=== PATIENT | female | born 1995 | race Caucasian/White ===

== ENCOUNTER 2021-08-21 20:01 | Emergency (ER) | payer MEDICAID ==
[2021-08-21 22:00] LABS: ANION GAP 14.7 mEq/L (7-13); CHLORIDE,CL 99 mmol/L (98-107); SODIUM,NA 136 mmol/L (136-145)
[2021-08-21 22:43] LABS: AMPHETAMINES,URINE NEGATIVE (NEGATIVE); BARBITURATES,URINE NEGATIVE (NEGATIVE); BENZODIAZEPINE,URINE NEGATIVE (NEGATIVE); MDMA (ECSTASY), URINE NEGATIVE (NEGATIVE); METHADONE,URINE NEGATIVE (NEGATIVE); METHAMPHETAMINES,URINE >=1.030 (NEGATIVE); OPIATES,URINE NEGATIVE (NEGATIVE); OXYCODONE,URINE NEGATIVE (NEGATIVE); PHENCYCLIDINE,URINE NEGATIVE (NEGATIVE); TCA,URINE NEGATIVE (NEGATIVE)
== END 2021-08-22 00:54 | disposition home or self-care (01) ==
LOC: DL.ED 20:01
DX: O20.9 Hemorrhage in early pregnancy, unspecified (principal); Z3A.09 9 weeks gestation of pregnancy
CPT/HCPCS: 36415; 76801; 80053; 80305-QW; 80307; 81001; 81025; 84702; 85025; 99283; 99284-25

== ENCOUNTER 2022-03-03 12:23 | Inpatient (IN) | payer MEDICAID ==
[2022-03-03] MEDS ORDERED: SODIUM CHLORIDE 0.9% IV STA (13:19)
[2022-03-03] MEDS ORDERED: GENTAMICIN IV STA (13:19)
[2022-03-03] MEDS ORDERED: Sodium Chloride 0.9% 10 ML Syringe FLUSH PRN (13:21)
[2022-03-03] MEDS ORDERED: Methylergonovine 0.2 MG Tab PO PRN (13:21)
[2022-03-03] MEDS ORDERED: Tranexamic Acid 1,000 MG in Sodium Chloride 0.9% 100 ML IV PRN ×2 (13:21→18:50)
[2022-03-03] MEDS ORDERED: Carboprost Tromethamine 250 MCG/1 ML Amp IM PRN ×2 (13:21→18:50)
[2022-03-03] MEDS ORDERED: Oxytocin 10 Units/1 ML SDV IM PRN (13:21)
[2022-03-03] MEDS ORDERED: Citric Acid/Sodium Citrate Solution 30 ML Cup PO ONE (13:21)
[2022-03-03] MEDS ORDERED: Lactated Ringers 1,000 ML IV SCH ×3 (13:30→19:00)
[2022-03-03] MEDS ORDERED: Oxytocin/Normal Saline 30 UNIT/500 ML BAG IV SCH (13:30)
[2022-03-03 14:18] LABS: ESTIMATED GFR 131 mL/min (>=60)
[2022-03-03] MEDS ORDERED: diphenhydrAMINE 50 MG/ML SDV ONE (14:24)
[2022-03-03] MEDS: Lactated Ringers 1,000 ML IV SCH ×2 (16:17→18:44)
[2022-03-03] MEDS ORDERED: ePHEDrine 50 MG/ML SDV IVPUSH PRN ×2 (16:46→18:50)
[2022-03-03] MEDS ORDERED: Promethazine 25 MG/ML SDV IM PRN (16:46)
[2022-03-03] MEDS ORDERED: Ondansetron 4 MG/2 ML SDV IVPUSH PRN ×2 (16:46→18:50)
[2022-03-03] MEDS ORDERED: Naloxone 2 MG/2 ML Syringe IVPUSH PRN ×2 (16:46→18:50)
[2022-03-03] MEDS ORDERED: Lactated Ringers 500 ML IV SCH ×2 (17:00)
[2022-03-03] MEDS: diphenhydrAMINE 50 MG/ML SDV IV PRN (17:53)
[2022-03-03] MEDS ORDERED: Misoprostol 400 MCG (4 X 100 MCG TAB) RECTAL PRN (18:50)
[2022-03-03] MEDS ORDERED: Acetaminophen/oxyCODONE 325-5 MG Tab PO PRN (18:50)
[2022-03-03] MEDS ORDERED: Methylergonovine 0.2 MG/1 ML Amp IM PRN (18:50)
[2022-03-03] MEDS ORDERED: Acetaminophen 325 MG Tab PO PRN (18:50)
[2022-03-03] MEDS ORDERED: Ketorolac 30 MG/ML SDV IVPUSH SCH (19:00)
[2022-03-03] MEDS ORDERED: Sodium Chloride 0.9% 10 ML Syringe FLUSH SCH (21:00)
[2022-03-03] MEDS: Ketorolac 30 MG/ML SDV IVPUSH SCH (22:32)
[2022-03-03] MEDS: Simethicone 80 MG Tab.Chew PO SCH (22:33)
[2022-03-03] MEDS: diphenhydrAMINE 50 MG/ML SDV IVPUSH PRN (22:53)
[2022-03-04] MEDS: diphenhydrAMINE 50 MG/ML SDV IVPUSH PRN (04:35)
[2022-03-04] MEDS: Ketorolac 30 MG/ML SDV IVPUSH SCH ×2 (04:38→09:37)
[2022-03-04] MEDS: Simethicone 80 MG Tab.Chew PO SCH ×4 (08:49→21:17)
[2022-03-04] MEDS: Prenatal Multivitamin with Calcium/Folic Acid/Iron Tab PO SCH (08:50)
[2022-03-04] MEDS: Ferrous Sulfate 325 MG Tab PO SCH (08:50)
[2022-03-04] MEDS: Docusate Sodium 100 MG Cap PO PRN (08:52)
[2022-03-04] MEDS: diphenhydrAMINE 50 MG/ML SDV IV PRN (09:38)
[2022-03-04] MEDS: Acetaminophen/oxyCODONE 325-5 MG Tab PO PRN ×2 (15:15→21:17)
[2022-03-04] MEDS: Ibuprofen 800 MG Tab PO PRN (21:19)
[2022-03-05] MEDS: Acetaminophen/oxyCODONE 325-5 MG Tab PO PRN ×2 (02:16→07:43)
[2022-03-05] MEDS: Prenatal Multivitamin with Calcium/Folic Acid/Iron Tab PO SCH ×2 (07:42→08:02)
[2022-03-05] MEDS: Ferrous Sulfate 325 MG Tab PO SCH (07:42)
[2022-03-05] MEDS: Simethicone 80 MG Tab.Chew PO SCH ×2 (07:43→08:02)
[2022-03-05] MEDS: Ibuprofen 800 MG Tab PO PRN (07:43)
[2022-03-05] MEDS: Docusate Sodium 100 MG Cap PO PRN (07:43)
[2022-03-05] MEDS ORDERED: Phenylephrine 1% 10 MG/ML SDV IV ONE (11:44)
[2022-03-05] MEDS ORDERED: Ondansetron 4 MG/2 ML SDV IV ONE (11:44)
[2022-03-05] MEDS ORDERED: Ketorolac 30 MG/ML SDV IVPUSH ONE (11:44)
[2022-03-05] MEDS ORDERED: diphenhydrAMINE 50 MG/ML SDV IV ONE (11:44)
[2022-03-05] MEDS ORDERED: Lactated Ringers 1,000 ML IV ONE (11:44)
[2022-03-05] MEDS ORDERED: EPINEPHrine 1 MG/ML SDV ONE (11:44)
[2022-03-05] MEDS ORDERED: Tranexamic Acid 1,000 MG in Sodium Chloride 0.9% 100 ML IV ONE (11:44)
[2022-03-05] MEDS ORDERED: fentaNYL 100 MCG/2 ML SDV ONE (11:44)
[2022-03-05] MEDS ORDERED: ePHEDrine 50 MG/ML SDV IV ONE (11:44)
[2022-03-05] MEDS ORDERED: Dexmedetomidine 200 MCG/2 ML SDV ONE (11:44)
[2022-03-05] MEDS ORDERED: Dexamethasone 4 MG/ML SDV IV ONE (11:44)
[2022-03-05] MEDS ORDERED: Morphine PF 10 MG/10 ML SDV ONE (11:44)
[2022-03-05] MEDS ORDERED: Oxytocin/Normal Saline 30 UNIT/500 ML BAG IV ONE (11:44)
[2022-03-05] MEDS ORDERED: Sodium Chloride 0.9% 10 ML Syringe IV ONE (11:44)
== END 2022-03-05 11:45 | disposition home or self-care (01) | DRG 787 ==
LOC: EDSTATUS 13:41 → DL.OB 13:51
PROVIDERS: ADMIT Family Medicine; ATTEND Family Medicine
PROC: 10D00Z1 Extraction of Products of Conception, Low, Open Approach (ICD-10-PCS; principal; 2022-03-03)
DX: O34.211 Maternal care for low transverse scar from previous cesarean delivery (principal); O98.32 Other infections with a predominantly sexual mode of transmission complicating childbirth; O99.214 Obesity complicating childbirth; A60.09 Herpesviral infection of other urogenital tract; O13.4 Gestational [pregnancy-induced] hypertension without significant proteinuria, complicating childbirth; O99.344 Other mental disorders complicating childbirth; F41.1 Generalized anxiety disorder; Z20.822 Contact with and (suspected) exposure to COVID-19; Z28.82 Immunization not carried out because of caregiver refusal; Z3A.38 38 weeks gestation of pregnancy; Z37.0 Single live birth
CPT/HCPCS: 01961; 36415; 59025; 81003; 82565; 82570; 83615; 84156; 84450; 84460; 84520; 84550; 85027; 86850; 86900; 86901; A9270-GY; J0171; J1100; J1200; J1580; J1885; J2270; J2370; J2405; J2590; J3010; J3490; J7120; U0002

== ENCOUNTER 2022-10-21 09:54 | Emergency (ER) | payer SELFPAY | END 2022-10-21 10:20 | disposition home or self-care (01) | LOC: DL.ED 09:54 | DX: N61.0 Mastitis without abscess (principal); E66.9 Obesity, unspecified; Z88.1 Allergy status to other antibiotic agents; Z68.42 Body mass index [BMI] 45.0-49.9, adult | CPT/HCPCS: 99282; 99283 ==

== ENCOUNTER 2023-01-06 15:59 | Emergency (ER) | payer BC ==
[2023-01-06 16:30] LABS: BASOPHILS PERCENT AUTO 0.3 % (0.0-1.0); EOSINOPHILS PERCENT AUTO 1.7 % (1.0-3.0); HEMATOCRIT 40.5 % (37.0-47.0); HEMOGLOBIN 14.1 g/dL (12.0-16.0); LYMPHOCYTES PERCENT AUTO 35.2 % (20.5-50.1); MEAN CORPUSCULAR HEMOGLOBIN 30.1 pg (27.0-34.0); MEAN CORPUSCULAR HGB CONC 34.8 g/dL (33.0-35.0); MEAN CORPUSCULAR VOLUME 86.4 fL (80-100); MONOCYTES PERCENT AUTO 3.2 % (2-8); NEUTROPHILS PERCENT AUTO 59.6 % (42.2-75.2); PLATELET COUNT,PLT 319 10^3/uL (150-450); RED BLOOD CELL COUNT 4.69 10^6/uL (4.2-5.4); WHITE BLOOD CELL COUNT,WBC 9.3 10^3/uL (5.0-10.0)
[2023-01-06] MEDS ORDERED: Ketorolac 30 MG/ML SDV IM ONE (17:28)
[2023-01-06 17:34] LABS: INR 0.9 (0.9-1.2); PROTHROMBIN TIME 9.4 SEC (9.0-12.0); PTT,PARTIAL THROMBOPLSTIN TIME 26.5 SEC (22.0-34.0)
== END 2023-01-06 17:34 | disposition home or self-care (01) ==
LOC: DL.ED 15:59
DX: N94.6 Dysmenorrhea, unspecified (principal); E66.9 Obesity, unspecified; Z68.42 Body mass index [BMI] 45.0-49.9, adult; Z88.1 Allergy status to other antibiotic agents
CPT/HCPCS: 36415; 84703; 85025; 85610; 85730; 86850; 86900; 86901; 99284

== ENCOUNTER 2023-04-15 07:45 | Emergency (ER) | payer BC ==
[2023-04-15] MEDS ORDERED: Acetaminophen 500 MG Tab PO ONE (08:16)
[2023-04-15] MEDS ORDERED: Sodium Chloride 0.9% 10 ML Syringe FLUSH PRN (08:16)
[2023-04-15] MEDS ORDERED: Ketorolac 30 MG/ML SDV IVPUSH ONE (08:16)
[2023-04-15 08:33] LABS: BASOPHILS PERCENT AUTO 0.3 % (0.0-1.0); EOSINOPHILS PERCENT AUTO 0.9 % (1.0-3.0); HEMOGLOBIN 14.3 g/dL (12.0-16.0); LYMPHOCYTES PERCENT AUTO 23.4 % (20.5-50.1); MEAN CORPUSCULAR HEMOGLOBIN 29.2 pg (27.0-34.0); MEAN CORPUSCULAR HGB CONC 33.3 g/dL (33.0-35.0); MEAN CORPUSCULAR VOLUME 87.9 fL (80-100); NEUTROPHILS PERCENT AUTO 70.4 % (42.2-75.2); PLATELET COUNT,PLT 315 10^3/uL (150-450); RED BLOOD CELL COUNT 4.89 10^6/uL (4.2-5.4); WHITE BLOOD CELL COUNT,WBC 11.6 10^3/uL (5.0-10.0)
[2023-04-15 08:52] LABS: ALBUMIN 3.6 g/dL (3.4-5.0); ANION GAP 17.9 mEq/L (7-13); BILIRUBIN TOTAL 0.4 mg/dL (0.2-1.0); C-REACTIVE PROTEIN 0.82 ng/dL (<=0.50); CALCIUM 8.6 mg/dL (8.5-10.1); CREATININE 0.77 mg/dL (0.55-1.02); EST CRCL DRUG DOSING (CG) 80.22 mL/min; POTASSIUM,K 3.9 mmol/L (3.5-5.1); PROTEIN TOTAL,TP 7.2 g/dL (6.4-8.2)
[2023-04-15 08:58] LABS: LACTIC ACID 1.5 mmol/L (0.4-2.0)
[2023-04-15 09:18] LABS: BILIRUBIN,URINE NEGATIVE (NEGATIVE); COLOR,URINE YELLOW (YELLOW); GLUCOSE,URINE NEGATIVE (NEGATIVE); KETONES,URINE NEGATIVE (NEGATIVE); LEUKOCYTE ESTERASE,URINE NEGATIVE (NEGATIVE); NITRITE,URINE POSITIVE (NEGATIVE); OCCULT BLOOD,URINE TRACE-INTACT (NEGATIVE); PH,URINE 5.5 (5.0-9.0); PROTEIN,URINE TRACE (NEGATIVE); UROBILINOGEN,URINE 0.2 mg/dL (0.2-1.0)
[2023-04-15 09:20] LABS: APPEARANCE,URINE SLIGHTLY CLOUDY (CLEAR)
[2023-04-15 09:26] LABS: BACTERIA,URINE MODERATE /HPF (0-FEW/HPF); EPITHELIAL CELLS,URINE FEW /HPF (NOT SEEN); MUCUS,URINE RARE /LPF (NOT SEEN); RBC,URINE 0-5 /HPF (0-5)
[2023-04-15 09:51] LABS: CORONAVIRUS COVID-19 NAA NEGATIVE (NEGATIVE); INFLUENZA A NAA NEGATIVE (NEGATIVE); INFLUENZA B NAA NEGATIVE (NEGATIVE)
== END 2023-04-15 09:45 | disposition home or self-care (01) ==
LOC: DL.ED 07:45
DX: N30.01 Acute cystitis with hematuria (principal); E66.9 Obesity, unspecified; Z88.1 Allergy status to other antibiotic agents
CPT/HCPCS: 0240U; 36415; 80053; 81001; 83605; 85025; 86140; 87086; 96374; 99284; A9270; J1885; 87088; 87186; J3490

== ENCOUNTER 2023-11-08 16:04 | Emergency (ER) | payer SELFPAY ==
[2023-11-08] MEDS: Ibuprofen 800 MG Tab PO ONE (18:50)
[2023-11-08] MEDS: Acetaminophen 500 MG Tab PO ONE (18:51)
== END 2023-11-08 18:55 | disposition home or self-care (01) ==
LOC: DL.ED 16:04
DX: S93.401A Sprain of unspecified ligament of right ankle, initial encounter (principal); E66.9 Obesity, unspecified; Z68.42 Body mass index [BMI] 45.0-49.9, adult; Z88.1 Allergy status to other antibiotic agents; W11.XXXA Fall on and from ladder, initial encounter
CPT/HCPCS: 73610; 99283; A9270